=== PATIENT | female | born 1975 | race Caucasian/White ===

== ENCOUNTER 2021-04-04 12:02 | Emergency (ER) | payer MEDICAID ==
[2021-04-04] MEDS ORDERED: fentaNYL 50 MCG/ML SDV IM ONE (12:07)
[2021-04-04] MEDS ORDERED: fentaNYL 100 MCG/2 ML SDV IM ONE (12:15)
[2021-04-04] MEDS ORDERED: fentaNYL 100 MCG/2 ML SDV ONE (12:18)
--- NOTE | 2021-04-04 12:27 | EDM.PDOC ---
ED HPI GENERAL MEDICAL PROBLEM - General Chief Complaint: Lower Extremity Injury/Pain Stated Complaint: left knee pain Time Seen by Provider: 04/04/21 12:23 Source of Information: Reports: Patient - History of Present Illness INITIAL COMMENTS - FREE TEXT/NARRATIVE: Elena is a 45 y/o female who presents to the ER via POV ne herself after she was kicked in the left knee by one of her horses. She reports being at the vet clinic with an injured horse and the horse was spooked and kicked her while they were in the trailer. She did get up and bear weight in the knee, but it is very painful. Pain seems to be shooting up in her left hip region.She has had a partial knee replacement done at [facility]. - Related Data Allergies Allergy/AdvReac Type Severity Reaction Status Date / Time No Known Allergies Allergy Verified 04/04/21 12:07 Home Meds: Home Meds Levothyroxine 1 tab PO DAILY 05/27/16 [History] Lisinopril 1 tab PO DAILY 05/27/16 [History] Acetaminophen/HYDROcodone [[place] 325-5 MG] 1 tab PO Q4H PRN 06/06/16 [History] Ibuprofen [Motrin] 400 mg PO Q6H 06/06/16 [History] Past Medical History HEENT History: Reports: Impaired Vision Cardiovascular History: Reports: Hypertension Musculoskeletal History: Reports: Fracture Other Musculoskeletal History: left humerous fx Neurological History: Reports: Concussion Endocrine/Metabolic History: Reports: Hypothyroidism Other Endocrine/Metabolic History: 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 - Infectious Disease History Infectious Disease History: Reports: Chicken Pox - Past Surgical History Female Surgical History: Reports: Tubal Ligation Review of Systems - Review of Systems Review Of Systems: See Below Constitutional: Reports: No Symptoms Eyes: Reports: No Symptoms Ears: Reports: No Symptoms Nose: Reports: No Symptoms Mouth/Throat: Reports: No Symptoms Respiratory: Reports: No Symptoms Cardiovascular: Reports: No Symptoms GI/Abdominal: Reports: No Symptoms Genitourinary: Reports: No Symptoms Musculoskeletal: Reports: Joint Pain (lef knee pain) Skin: Reports: No Symptoms Neurological: Reports: No Symptoms Psychiatric: Reports: No Symptoms ED EXAM, GENERAL - Physical Exam Exam: See Below General Appearance: Alert, WD/WN, No Apparent Distress (Adult female, obviously in pain with movement) Ears: Hearing Grossly Normal Head: Atraumatic, Normocephalic Respiratory/Chest: No Respiratory Distress Cardiovascular: Regular Rate, Rhythm GI/Abdominal: Soft (Female) Exam: Deferred Rectal (Female) Exam: Deferred Back Exam: Normal Inspection Extremities: Other (Left knee is tender with palpation and ROM. No effusion noted. Note well healed surgical scar over left knee. Left hip unremarkable, ROM normal.) Neurological: Alert, Oriented, CN II-XII Intact Psychiatric: Normal Affect, Normal Mood Skin Exam: Warm, Dry, Intact, Normal Color Course - Vital Signs Text/Narrative:: 1223 The patient was seen by the [employer]. Xray ordered. She was given Fentanyl 50mcg IM for pain. - Orders/Labs/Meds Orders: Active Orders 24 hr Category Date Time Status Knee 3V Lt [CR] Stat Exams 04/04/21 12:08 Ordered Meds: Medications Discontinued Medications Generic Name Dose Route Start Last Admin Trade Name Freq PRN Reason Stop Dose Admin Fentanyl 50 mcg 04/04/21 12:07 Fentanyl 50 Mcg/Ml Sdv IM 04/04/21 12:08 ONETIME ONE Fentanyl 50 mcg 04/04/21 12:15 04/04/21 12:20 Fentanyl 100 Mcg/2 Ml Sdv IM 04/04/21 12:16 50 mcg ONETIME ONE Administration Fentanyl Confirm 04/04/21 12:18 Fentanyl 100 Mcg/2 Ml Sdv Administered 04/04/21 12:19 Dose 100 mcg .ROUTE .STK-MED ONE - Radiology Interpretation Free Text/Narrative:: XR 3V Left Knee-no acute fractures noted, prothesis in place (See final report) Departure - Departure Time of Disposition: 12:42 Disposition: Home, Self-Care 01 Condition: Good Clinical Impression: [place]ident [place] farm, History of partial knee replacement Left knee pain Qualifiers: Chronicity: acute Qualified Code(s): M25.562 - Pain in left knee - Discharge Information *PRESCRIPTION DRUG MONITORING PROGRAM REVIEWED*: Not Applicable *COPY OF PRESCRIPTION DRUG MONITORING REPORT IN PATIENT MARGARET: Not Applicable Instructions: Acute Knee Pain, Adult, Pain Medicine Instructions, [id number] Forms: ED Department Discharge Additional Instructions: -Ibuprofen 200mg 3 tablets oral every 6 hours as needed for pain -Acetaminophen 325mg 3 tablets oral every 6 hours as needed for pain -Keep the NGUYEN wrap in place to help decrease the swelling and provide support -Apply ice through the next 24-48 hours to help with swelling and inflammation -Your xray did not show any fractures and your prothesis appears intact -If your pain is persisting over the next 4-5 days, make an appt to see your PCP or go to [facility]gent care to be seen -Return to the ER as needed - My Orders Last 24 Hours: My Active Orders 04/04/21 12:08 Knee 3V Lt [CR] Stat - Assessment/Plan Last 24 Hours: My Active Orders 04/04/21 12:08 Knee 3V Lt [CR] Stat
[2021-04-04 12:37] VITALS: BP 131/77; PULSE 103
== END 2021-04-04 13:04 | disposition home or self-care (01) ==
LOC: LL.ED 12:02
DX: M25.562 Pain in left knee (principal); E03.9 Hypothyroidism, unspecified; I10 Essential (primary) hypertension; Z79.899 Other long term (current) drug therapy; W55.12XA Struck by horse, initial encounter
CPT/HCPCS: 73562-LT; 96372; 99283; J3010

== ENCOUNTER 2025-08-28 09:44 | Emergency (ER) | payer MEDICAID ==
[2025-08-28 10:35] VITALS: BP 137/86; PULSE 84
== END 2025-08-28 10:19 | disposition home or self-care (01) ==
LOC: LL.ED 09:44
DX: M79.89 Other specified soft tissue disorders (principal)
CPT/HCPCS: 99283

== ENCOUNTER 2025-09-03 11:16 | Emergency (ER) | payer MEDICAID ==
[2025-09-03 11:45] LABS: BASOPHILS ABSOLUTE AUTO 0.05 K/uL (0.00-0.20); BASOPHILS PERCENT AUTO 0.5 % (0.0-2.0); EOSINOPHILS ABSOLUTE AUTO 0.39 K/uL (0.00-0.50); EOSINOPHILS PERCENT AUTO 3.7 % (0.0-5.0); IMMATURE GRAN ABSOLUTE AUTO 0.02 10^3/uL (0.00-0.04); IMMATURE GRAN PERCENT AUTO 0.2 % (0.0-0.4); LYMPHOCYTES ABSOLUTE AUTO 2.17 K/uL (0.50-3.50); LYMPHOCYTES PERCENT AUTO 20.6 % (10.0-50.0); MONOCYTES ABSOLUTE AUTO 0.79 K/uL (0.00-1.00); MONOCYTES PERCENT AUTO 7.5 % (2.0-14.0); NEUTROPHILS ABSOLUTE AUTO 7.13 K/uL (1.40-7.00); NEUTROPHILS PERCENT AUTO 67.5 % (45.0-80.0); PLATELET COUNT,PLT 365 K/uL (150-350); RED BLOOD CELL COUNT 4.74 M/uL (3.77-5.09); RED CELL DISTRIBUTION WIDTH 12.0 % (11.2-14.1); WHITE BLOOD CELL COUNT,WBC 10.6 K/uL (4.0-10.2)
[2025-09-03] MEDS: Sodium Chloride 0.9% 10 ML Syringe FLUSH PRN (11:58)
[2025-09-03 12:03] LABS: BLOOD UREA NITROGEN,BUN 16.0 mg/dL (7-18); CARBON DIOXIDE,CO2 29.4 mmol/L (21.0-32.0); CHLORIDE,CL 102.0 mmol/L (98-107); CREATININE 0.76 mg/dL (0.51-1.17); EST CRCL DRUG DOSING (CG) 75.62 mL/min; GLUCOSE RANDOM 92.0 mg/dL (70-99); POTASSIUM,K 3.4 mmol/L (3.5-5.1); SODIUM,NA 141.0 mmol/L (136-145)
[2025-09-03 12:09] LABS: ESTIMATED GFR 95.0 mL/min (>=60)
[2025-09-03 12:10] LABS: LACTIC ACID 1.1 mmol/L (0.4-2.0)
[2025-09-03] MEDS ORDERED: Iopamidol 612 MG/ML 100 ML Bottle ONE (12:29)
[2025-09-03] MEDS: Iopamidol 612 MG/ML 100 ML Bottle IVPUSH ONE (12:55)
[2025-09-03 15:34] VITALS: BP 136/93; PULSE 83
== END 2025-09-03 13:50 | disposition home or self-care (01) ==
LOC: LL.ED 11:16
DX: L03.115 Cellulitis of right lower limb (principal); I10 Essential (primary) hypertension; E03.9 Hypothyroidism, unspecified; Z79.899 Other long term (current) drug therapy; Z79.890 Hormone replacement therapy; Z87.891 Personal history of nicotine dependence
CPT/HCPCS: 36415; 73701-RT; 80048; 83605; 85025; 86140; 96365; 99283; 99284-25; J0696; Q9967